=== PATIENT | male | born 1980 ===

== ENCOUNTER 2021-07-21 11:57 | Emergency (ER) | payer SELFPAY ==
[2021-07-21] MEDS ORDERED: Amoxicillin/Clavulanate K 875-125 MG Tab PO ONE (11:58)
[2021-07-21] MEDS ORDERED: Sodium Chloride 0.9% 10 ML Syringe FLUSH PRN (12:11)
[2021-07-21] MEDS ORDERED: Iopamidol 612 MG/ML 100 ML Bottle IVPUSH ONE (13:08)
[2021-07-21 13:09] LABS: ANION GAP 10.1 mEq/L (7-13); CHLORIDE,CL 102 mmol/L (98-107); SODIUM,NA 138 mmol/L (136-145)
[2021-07-21] MEDS ORDERED: Lidocaine 1% with EPINEPHrine 1:100,000 20 ML MDV INJECT ONE (14:18)
[2021-07-21] MEDS ORDERED: Amoxicillin/Clavulanate K 875-125 MG Tab ONE (15:11)
== END 2021-07-21 15:42 | disposition home or self-care (01) ==
LOC: DL.ED 11:57
DX: K61.0 Anal abscess (principal); Z72.0 Tobacco use
CPT/HCPCS: 10060; 36415; 74177; 80053; 83605; 85025; 86140; 87040; 87070; 87077; 87186; 99283-25; 99284; A9270-GY; Q9967